=== PATIENT | female | born 1995 | race Caucasian/White ===

== ENCOUNTER 2020-09-18 09:48 | Emergency (ER) | payer MEDICAID, SELFPAY ==
[2020-09-18 09:56] VITALS: BP 119/71; PULSE 108; RESP 18; TEMP 36.6; O2SAT 98; BMI 20.2
--- NOTE | 2020-09-18 09:56 | ECG_ITS ---
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 Measurements Intervals [place] Rate: 92 P: 71 [place]: 114 QRS: 41 QRSD: 77 T: -34 QT: 345 QTc: 428 Interpretive Statements SINUS RHYTHM WITH SHORT OH INTERVAL POSSIBLE LEFT ATRIAL ENLARGEMENT [-0.1mV P WAVE IN V1/V2] NONSPECIFIC T-WAVE ABNORMALITY No previous ECG available for comparison Electronically Signed On 09-18-2020 16:55:22 PARTY HOST by Tu Mcfadden M.D. [id number]
--- NOTE | 2020-09-18 10:10 | W.ED.DIZZY ---
HPI - Dizziness General: Chief Complaint: Dizziness Stated Complaint: dizziness Time Seen by Provider: 09/18/20 09:55 Source: patient Mode of arrival: ambulatory Limitations: no limitations History of Present Illness: HPI Narrative: 25-year-old female patient presents to the emergency room with 2-day history of dizziness. She reports lightheadedness and dizziness that has been chronic due to dehydration x3 years. Recently evaluated by her primary care physician on September 16, 2020, was advised she was dehydrated. Advised to increase fluids, patient states has done so and is not improving. She reports dizziness is worse with standing and position changes. She reports dizziness as feeling lightheaded as if she were to pass out. Recently initiated on Lexapro July 2020. States dizzy spells have increased since Lexapro use and questions if Lexapro could be cause of dizzy spells. Reports runny nose and frontal headache in the recent past, denies BENTLEY upon exam. She reports did not want to take the medication but was advised by her primary care to do so. MD elicited complaint: dizziness and lightheadedness Pertinent past history: other (chronic dehydration from increased soda and coffee intake, denies n/v/d) Onset (ago): day(s) (2-3; chronic x 3 years on and off) Severity: moderate Description: lightheadedness and near-syncope Context: change in medication History of similar symptoms: Yes Exacerbating factors: movement/ambulation Relieving factors: remaining still Associated symptoms: Reports no associated symptoms; Denies chest pain, chills, diaphoresis, headache(s), nausea, palpitations or vomiting Associated neuro symptoms: Reports no associated symptoms; Deny confusion or numbness in extremities Review of Systems General: Reports: 10 or more systems reviewed and unremarkable except in HPI and below Const: Denies: fever(s), chills or diaphoresis Eyes: Denies: blurry vision or eye redness ENMT: Denies: throat pain, dental pain or disequilibrium Card: Denies: chest pain, palpitations, irregular heart rhythm or dyspnea on exertion Resp: Denies: dyspnea, productive cough, non-productive cough or wheezing GI: Denies: abdominal pain, nausea or vomiting : Denies: difficulty voiding or dysuria Musc: Denies: neck pain, back pain, joint warmth, joint stiffness, muscle cramps or muscle weakness Skin/Breast: Denies: rash or pruritus Neuro: Reports: dizziness; Denies: headache(s), numbness in extremities, weakness in extremities, difficulty walking, frequent falls, confusion, behavioral changes, Slurred speech present or involuntary movements Psych: Reports: anxiety; Denies: depression, panic attacks, hopelessness, loss of interest, irritability or difficulty concentrating Eusebio/Lymph: Denies: easy bruising Physical Exam Const: COMMON NORMALS: no acute distress, patient oriented x3, healthy appearing and alert GENERAL APPEARANCE: cooperative, comfortable and well hydrated HENMT: COMMON NORMALS: normocephalic, atraumatic, external ears normal, EAC's normal, TM's normal bilaterally, Normal external nose present and moist oral mucous membranes HEAD & SCALP: normal to inspection, normocephalic and atraumatic FACE & SINUS: normal facial exam, sinuses nontender and face symmetric NOSE: Normal external nose present, No nasal polyps present, No nasal discharge present and Abnormal mucous membranes and turbinates present (cobblestone, swelling bilateral) EXTERNAL EAR: Yes external ears normal EXTERNAL AUDITORY CANAL: EAC's normal TYMPANIC MEMBRANE: TM's normal bilaterally MOUTH: Normal oral and palatal mucosa present, lip normal and tongue normal THROAT: posterior oropharynx normal, tonsils normal and uvula midline Eye: COMMON NORMALS: Equal, round and reactive pupils present and EOMs intact bilaterally GENERAL EYE: appearance normal, both eyes and all related structures PUPIL: Yes Equal, round and reactive pupils present Neck/C-Spine: COMMON NORMALS: full ROM, no lymphadenopathy and supple GENERAL: Yes normal visual inspection and Yes trachea midline CERVICAL SPINE: Yes cervical ROM normal Lymph: LYMPHATIC: no lymphadenopathy noted Chest: COMMONS NORMALS: normal inspection of the chest and normal palpation of entire chest wall Resp: COMMON NORMALS: normal respiratory effort, No retractions, No use of accessory muscles and clear to auscultation bilaterally EFFORT & INSPECTION: Yes able to speak in complete sentences AUSCULTATION: clear to auscultation bilaterally Cardio: COMMON NORMALS: regular rate, regular rhythm, S1 normal heart sound present and S2 normal heart sound present PALPATION: normal PMI RATE: regular rate RHYTHM: regular rhythm HEART SOUNDS: S1 normal heart sound present and S2 normal heart sound present GI: COMMON NORMALS: Soft to palpation and non-tender INSPECTION: Yes normal to inspection PALPATION: Yes Soft to palpation : COMMON NORMALS: Yes no CVA tenderness BLADDER/KIDNEY EXAM: Yes no CVA tenderness Back/Pelvis: COMMON NORMALS: no CVA tenderness and thoracic and lumbar spine normal to inspection Extremity: COMMON NORMALS: normal to inspection and capillary refill normal Neuro: NANCY COMA SCALE: document GCS findings Nancy coma scale eye opening: Spontaneous [place] coma scale verbal response: Orientated [place] coma scale motor response: Obey commands Nancy coma scale total score: 15 COMMON NORMALS: patient oriented x3 and no focal motor deficits SENSORIUM/ORIENTATION: Yes alert SPEECH: speech normal GAIT: Yes Normal gait present MOTOR EXAM: 5/5 motor strength present throughout, Pronator motor function not present and no tremor noted Right pupil size (mm): 4 Left pupil size (mm): 4 Psych: COMMON NORMALS: mental status grossly normal, Normal thought process present, cooperative, normal affect, speech normal, activity/motor behavior normal, denies hallucinations, denies homicidal ideation and denies suicidal ideation ACTIVITY/MOTOR BEHAVIOR: Yes appropriate eye contact SPEECH: Yes normal speech THOUGHT PROCESS: Normal thought process present Skin: COMMON NORMALS: no rashes or lesions noted and turgor normal GENERAL SKIN EXAM: no rashes or lesions noted and turgor normal Course ED course: 25-year-old female patient presents to the emergency department with increased dizziness since initiation of Lexapro. CBC without acute abnormalities, hCG negative, chemistry with slight hypokalemia, 3.4. Orthostatics positive with heart rate, increased to 113 with standing. Blood pressure remained stable. She continues to verbalize concern that Lexapro is the cause of her dizziness, since she is only on 10 mg daily and has experienced similar side effects symptoms with use of sertraline, will have her stop Lexapro, initiate hydroxyzine for her to take as needed for anxiety. She reports does not take Lexapro for depression only for anxiety and does not experience anxiety symptoms daily. She agrees to follow-up with her primary care provider next week for reevaluation. Advised to continue to push fluids such as water, Powerade or Gatorade 0. Verbalized understanding. We will also initiate Flonase for allergy/sinus symptoms. As Lexapro discontinuation mention, she reports was feeling better. She did receive 500 cc of normal saline here in the ED, reports dizziness was improving and is requesting to go home. Vital Signs: Vital signs: Vital Signs Temperature 97.9 F 09/18/20 09:56 Pulse Rate 83 09/18/20 10:31 Respiratory Rate 18 09/18/20 09:56 Blood Pressure 101/66 09/18/20 10:31 Pulse Oximetry 98 09/18/20 09:56 MDM - Dizziness Lab Data: Labs: Lab Results 09/18/20 09/18/20 09/18/20 Range/Units 10:18 10:18 10:18 WBC 4.6 (4.0-10.0) 10^3/ uL RBC 4.63 (4.1-5.3) 10^6/u L Hgb 14.1 (11.5-15.3) g/dL Hct 43.7 (37.0-47.0) % MCV 94.4 (81-99) fL MCH 30.5 (28.0-34.0) pg MCHC 32.3 (30.0-36.0) g/dL RDW 13.2 (12.1-15.1) % Plt Count 208 (130-400) 10^3/c mm MPV 12.4 H (7.4-10.4) fL Neut % (Auto) 65.2 % Lymph % (Auto) 26.7 % [place] % (Auto) 6.3 % Eos % (Auto) 0.9 % Baso % (Auto) 0.7 % Neut # (Auto) 2.98 (1.8-7.7) 10^3/u L Lymph # (Auto) 1.2 (0.8-4.8) 10^3/u L [place] # (Auto) 0.3 (0.2-0.9) 10^3/u L Eos # (Auto) 0.0 (0.0-0.8) 10^3/u L Baso # (Auto) 0.0 (0.0-0.1) 10^3/u L Nucleated RBC % (a uto) 0 % Nucleated RBCs # 0.0 /100WBC Sodium 138 (136-145) mmol/L Potassium 3.4 L (3.5-5.1) mmol/L Chloride 103 (98-107) mmol/L Carbon Dioxide 24 (22-29) mmol/L Anion Gap 14.4 (5-19) BUN 7 (6-20) mg/dL Creatinine 0.6 (0.5-0.9) mg/dL GFR Calculation 122.8 (90-130) mL/min Glucose 107 (65-115) mg/dL Calculated Osmolal ity 284 L (285-295) mOsm/k g Calcium 9.4 (8.5-10.5) mg/dL Total Bilirubin 0.7 (0.15-1.2) mg/dL AST 17 (0-32) U/L ALT 11 (0-33) U/L Alkaline Phosphata se 64 (35-105) IU/L Total Protein 8.3 (6.6-8.7) g/dL Albumin 5.1 (3.5-5.2) g/dL Globulin 3.2 (1.3-4.6) g/dL HCG, Qual Negative (Negative) Discharge Plan Discharge Patient Disposition: Home Clinical Impression: Dizziness Adverse reaction to drug Qualifiers: Encounter type: initial encounter Qualified Code(s): T50.905A - Adverse effect of unspecified drugs, medicaments and biological substances, initial encounter Allergic rhinitis Qualifiers: Allergic rhinitis trigger: unspecified Allergic rhinitis seasonality: unspecified Qualified Code(s): J30.9 - Allergic rhinitis, unspecified Condition: Stable Prescriptions: New hydroxyzine HCl 25 mg tablet 25 mg PO Q6H PRN (Reason: anxiety) Qty: 14 RF: 0 Allergy Relief (fluticasone) 50 mcg/actuation spray,suspension 1 spray intranasal BID PRN (Reason: allergy symptoms) Qty: 15.8 RF: 0 Discharge Orders: Discharge ED (Routine); Ordered 09/18/20 Ordered By: Janae Hernández Discharge Diet: Usual diet Discharge Activity: Resume usual activity Patient Instructions: Allergic Rhinitis (ED), Dizziness (ED), Anxiety (ED) Activity Restrictions/Additional Instructions: Stop Lexapro, follow-up with your primary care physician without fail next week Return to the emergency department if you develop worsening symptoms such as the worst headache of your life, syncope, passing out or uncontrolled anxiety symptoms. Push fluids, rest today and tomorrow. 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
[2020-09-18 10:31] VITALS: BP 101/66; BP 101/70; BP 106/74; PULSE 109; PULSE 113; PULSE 83
[2020-09-18 10:48] LABS: Basophils % 0.7 %; Eosinophils % 0.9 %; Hematocrit 43.7 % (37.0-47.0); Hemoglobin 14.1 g/dL (11.5-15.3); Lymphocytes # 1.2 10^3/uL (0.8-4.8); Lymphocytes % 26.7 %; Mean Corpuscular HGB Conc 32.3 g/dL (30.0-36.0); Mean Corpuscular Hemoglobin 30.5 pg (28.0-34.0); Mean Corpuscular Volume 94.4 fL (81-99); Mean Platelet Volume 12.4 fL (7.4-10.4); Monocytes # 0.3 10^3/uL (0.2-0.9); Monocytes % 6.3 %; Neutrophils # 2.98 10^3/uL (1.8-7.7); Neutrophils % 65.2 %; Nucleated Red Blood Cells % 0 %; Platelet Count 208 10^3/cmm (130-400); Red Blood Count 4.63 10^6/uL (4.1-5.3); Red Cell Distribution Width 13.2 % (12.1-15.1); White Blood Count 4.6 10^3/uL (4.0-10.0)
[2020-09-18 10:56] LABS: HCG, Serum Qual Negative (Negative)
[2020-09-18 11:05] LABS: Alanine Aminotransferase 11 U/L (0-33); Albumin Level 5.1 g/dL (3.5-5.2); Alkaline Phosphatase 64 IU/L (35-105); Anion Gap 14.4 (5-19); Aspartate Amino Transferase 17 U/L (0-32); Blood Urea Nitrogen 7 mg/dL (6-20); Calcium 9.4 mg/dL (8.5-10.5); Carbon Dioxide 24 mmol/L (22-29); Chloride 103 mmol/L (98-107); Globulin 3.2 g/dL (1.3-4.6); Glomerular Filtration Rate 122.8 mL/min (90-130); Glucose 107 mg/dL (65-115); Osmolality Calculated 284 mOsm/kg (285-295); Potassium 3.4 mmol/L (3.5-5.1); Sodium 138 mmol/L (136-145); Total Bilirubin 0.7 mg/dL (0.15-1.2); Total Protein 8.3 g/dL (6.6-8.7)
[2020-09-18] MEDS: sodium chloride 0.9% 500 ML 999 ML IV (11:08)
[2020-09-18 12:12] VITALS: BP 103/56; PULSE 81; RESP 20; O2SAT 98
== END 2020-09-18 12:13 | disposition home or self-care (01) ==
PROVIDERS: Emergency Provider Nurse Practitioner Family
DX: R42 Dizziness and giddiness (principal); T50.905A Adverse effect of unspecified drugs, medicaments and biological substances, initial encounter; J30.9 Allergic rhinitis, unspecified
CPT/HCPCS: 12345; 80053; 84703; 85025; 93005; 99282; 99283; J7040

== ENCOUNTER → 2020-12-27 14:22 | Outpatient (BNVA) | payer MEDICAID, SELFPAY | PROVIDERS: Visit Provider Psychiatry & Neurology Psychiatry | DX: F41.1 Generalized anxiety disorder (principal); F43.9 Reaction to severe stress, unspecified | CPT/HCPCS: 99204 ==

== ENCOUNTER → 2021-02-07 09:31 | Outpatient (BNVA) | payer MEDICAID, SELFPAY | PROVIDERS: Visit Provider Psychiatry & Neurology Psychiatry | DX: F43.9 Reaction to severe stress, unspecified (principal); F41.1 Generalized anxiety disorder | CPT/HCPCS: 99214 ==

== ENCOUNTER 2021-04-02 14:57 | Emergency (ER) | payer MEDICAID, SELFPAY ==
[2021-04-02] VITALS (7 sets, daily range): BP systolic 95–122; BP diastolic 65–76; PULSE 74–97; RESP 15–18; TEMP 36.7; O2SAT 99–100; BMI 21.4
[2021-04-02 18:08] LABS: Add Urine Microscopic? YES; Bilirubin Urine Neg (Negative); Blood Urine 3+ (Negative); Glucose Urine UA Norm (Normal); Ketones Urine Negative (Negative); Leukocyte Esterase Urine Negative (Negative); Nitrate Urine Negative (Negative); Protein Urine Neg (Negative); RBC Urine 80-100 /hpf (0-2); Specific Gravity, Urine 1.015 (1.005-1.030); Urine Appearance SL Hazy (CLEAR); Urine Color Yellow (Yellow); Urobilinogen Urine Norm (Negative); pH Urine 6.5 (5-7)
[2021-04-02 18:09] LABS: Add Urine Culture? Yes; Bacteria Urine TRACE /hpf
--- NOTE | 2021-04-02 18:28 | W.ED.DIZZY ---
HPI - Dizziness General: Chief Complaint: Dizziness Stated Complaint: FEELS DEHYDRATED Time Seen by Provider: 04/02/21 15:26 Source: patient Mode of arrival: ambulatory Limitations: no limitations History of Present Illness: HPI Narrative: This 25 year old female presents to the ED with complaints of dizziness. She has had this for a few days, and went to see her PCP for the same. She was told that she was dehydrated. He told her to increase water intake however she only drank half a bottle of a 16 ounce water bottle yesterday. She denies any sensation of the room spinning, denies nausea or vomiting. She denies any chest pain or shortness of breath. No other symptoms. She is currently on her menstrual cycle. MD elicited complaint: dizziness Onset (ago): day(s) (2) Timing: gradual onset Severity: mild Description: lightheadedness Exacerbating factors: nothing Relieving factors: nothing Associated symptoms: Denies abnormal vaginal bleeding, change in hearing, chest pain, chills, cough, diaphoresis, ear discharge, ear pressure, fevers/chills, headache(s), malaise, nausea, nasal congestion, palpitations, rash, short of breath, syncope, tinnitus, vomiting or weakness Associated neuro symptoms: Deny confusion, difficulty speaking, dysphagia, diplopia, extremity weakness, facial numbness, facial weakness, gait changes, numbness in extremities or visual changes Review of Systems General: Reports: 10 or more systems reviewed and unremarkable except in HPI and below Const: Denies: chills, malaise or diaphoresis ENMT: Denies: ear discharge, change in hearing, tinnitus or nasal congestion Card: Denies: chest pain, palpitations or syncope GI: Denies: nausea, vomiting or dysphagia Neuro: Denies: headache(s), numbness in extremities or confusion PFS ED PFSH: Medical History (Reviewed 04/02/21 @ 19:57 by Chaparrita Gonzalez MD, [facility] – [place]) STEVE (generalized anxiety disorder) Sertraline caused dizziness. Surgical History (Reviewed 04/02/21 @ 19:57 by Chaparrita Gonzalez MD, [facility] – [place]) H/O section Social History (Reviewed 04/02/21 @ 19:57 by Chaparrita Gonzalez MD, [facility] – [place]) Smoking and tobacco status: never smoked Second hand smoke exposure: Yes Alcohol intake: current Alcohol intake frequency: few times a month Female Reproductive History: Date of last menstrual period: 04/02/21 Spontaneous abortions: No Physical Exam Const: COMMON NORMALS: no acute distress, average body habitus, patient oriented x3, no limitations, healthy appearing, alert and well nourished HENMT: COMMON NORMALS: normocephalic, atraumatic and moist oral mucous membranes HEAD & SCALP: normocephalic and atraumatic Neck/C-Spine: COMMON NORMALS: no meningeal signs and no JVD Resp: COMMON NORMALS: normal respiratory effort, No retractions, No use of accessory muscles, clear to auscultation bilaterally and percussion normal AUSCULTATION: clear to auscultation bilaterally PERCUSSION: percussion normal Cardio: COMMON NORMALS: no JVD, regular rate, regular rhythm, S1 normal heart sound present, S2 normal heart sound present, No gallops present (Cardio), No clicks present (Cardio), No murmurs present (Cardio), No rub (Cardio) and Peripheral pulses 2+ throughout RATE: regular rate RHYTHM: regular rhythm HEART SOUNDS: S1 normal heart sound present and S2 normal heart sound present PERIPHERAL PULSES: Peripheral pulses 2+ throughout GI: COMMON NORMALS: Normal to inspection, nondistended, normoactive bowel sounds present, Soft to palpation, non-tender, No hepatosplenomegaly present, no masses and no bruits PALPATION: Yes Soft to palpation and Yes No hepatosplenomegaly present Extremity: COMMON NORMALS: normal to inspection, full ROM, capillary refill normal, no calf tenderness and no pedal edema Neuro: COMMON NORMALS: patient oriented x3 SENSORIUM/ORIENTATION: Yes alert MENINGEAL SIGNS: Yes no meningeal signs Course Reevaluation(s): Reevaluation #1: Discussed the lab findings with her. Also discussed her orthostatic findings. She is not orthostatic. Labs are unremarkable. We will discharge her home with no new orders and she is advised to drink plenty of water. She voiced understanding and is in agreement with the plan. Time: 19:25 Vital Signs: Vital signs: Vital Signs Temperature 98.1 F 04/02/21 15:05 Pulse Rate 84 04/02/21 19:48 Respiratory Rate 16 04/02/21 19:48 Blood Pressure 118/76 04/02/21 19:48 Pulse Oximetry 100 04/02/21 19:48 MDM - Dizziness MDM Narrative: Medical decision making narrative: 25-year-old female patient who presents to the emergency department with nonspecific symptoms of dizziness. Evaluation in the emergency department is unremarkable and she is discharged home with no new orders. Medical Records: Attestation: I reviewed the patient's medical records. Lab Data: Attestation: I reviewed the patient's lab results. Labs: Lab Results 04/02/21 04/02/21 04/02/21 Range/Units 17:53 18:33 18:33 WBC 6.6 (4.0-10.0) 10^3/ uL RBC 4.08 L (4.1-5.3) 10^6/u L Hgb 12.1 (11.5-15.3) g/dL Hct 38.4 (37.0-47.0) % MCV 94.1 (81-99) fL MCH 29.7 (28.0-34.0) pg MCHC 31.5 (30.0-36.0) g/dL RDW 13.9 (12.1-15.1) % Plt Count 240 (130-400) 10^3/c mm MPV 11.0 H (7.4-10.4) fL Neut % (Auto) 68.9 % Lymph % (Auto) 22.0 % [place] % (Auto) 6.7 % Eos % (Auto) 1.7 % Baso % (Auto) 0.5 % Neut # (Auto) 4.55 (1.8-7.7) 10^3/u L Lymph # (Auto) 1.5 (0.8-4.8) 10^3/u L [place] # (Auto) 0.4 (0.2-0.9) 10^3/u L Eos # (Auto) 0.1 (0.0-0.8) 10^3/u L Baso # (Auto) 0.0 (0.0-0.1) 10^3/u L Nucleated RBC % (a uto) 0 % Nucleated RBCs # 0.0 /100WBC Sodium 141 (136-145) mmol/L Potassium 3.8 (3.5-5.1) mmol/L Chloride 107 (98-107) mmol/L Carbon Dioxide 27 (22-29) mmol/L Anion Gap 10.8 (5-19) BUN 7 (6-20) mg/dL Creatinine 0.5 (0.5-0.9) mg/dL GFR Calculation 151.6 H (90-130) mL/min Glucose 84 (65-115) mg/dL Calculated Osmolal ity 289 (285-295) mOsm/k g Calcium 9.1 (8.5-10.5) mg/dL Total Bilirubin 0.3 (0.15-1.2) mg/dL AST 15 (0-32) U/L ALT 10 (0-33) U/L Alkaline Phosphata se 72 (35-105) IU/L C-Reactive Protein 2.1 (0.0-4.9) mg/L Total Protein 7.2 (6.6-8.7) g/dL Albumin 4.4 (3.5-5.2) g/dL Globulin 2.8 (1.3-4.6) g/dL Urine Color Yellow (Yellow) Urine Appearance Sl hazy (CLEAR) Urine pH 6.5 (5-7) Ur Specific Gravit y 1.015 (1.005-1.030) Urine Protein Neg (Negative) Urine Glucose (UA) Norm (Normal) Urine Ketones Negative (Negative) Urine Blood 3+ H (Negative) Urine Nitrate Negative (Negative) Urine Bilirubin Neg (Negative) Urine Urobilinogen Norm (Negative) mg/dL Ur Leukocyte Danitza ase Negative (Negative) Urine RBC 80-100 H (0-2) /hpf Urine WBC None (0-5) /hpf Ur Squamous Epith Cells 5-10 H (0-5) /hpf Amorphous Sediment Not Reportable Urine Bacteria Trace (NONE) /hpf Discharge Plan Discharge Patient Disposition: Home Clinical Impression: Dizziness Condition: Stable Prescriptions: Continued Tylenol Extra Strength 500 mg Tablet 1,000 mg PO PRN RF: 0 Lexapro 20 mg tablet 20 mg PO BEDTIME RF: 0 Discharge Orders: Discharge ED (Routine); Ordered 04/02/21 Ordered By: Chaparrita Gonzalez Discharge Diet: Usual diet Discharge Activity: Increase activity as tolerated Patient Instructions: Dizziness (ED) Activity Restrictions/Additional Instructions: Return for any new or worsening symptoms. Follow-up with your primary care provider within 3 days. It is important that you drink plenty of fluids to keep well-hydrated. Coding Level of Care Code ED Mine Utility Operator for Cuca Shin
[2021-04-02 18:41] LABS: Basophils % 0.5 %; Eosinophils # 0.1 10^3/uL (0.0-0.8); Eosinophils % 1.7 %; Hematocrit 38.4 % (37.0-47.0); Hemoglobin 12.1 g/dL (11.5-15.3); Lymphocytes # 1.5 10^3/uL (0.8-4.8); Mean Corpuscular HGB Conc 31.5 g/dL (30.0-36.0); Mean Corpuscular Hemoglobin 29.7 pg (28.0-34.0); Mean Corpuscular Volume 94.1 fL (81-99); Monocytes # 0.4 10^3/uL (0.2-0.9); Monocytes % 6.7 %; Neutrophils # 4.55 10^3/uL (1.8-7.7); Neutrophils % 68.9 %; Nucleated Red Blood Cells % 0 %; Platelet Count 240 10^3/cmm (130-400); Red Blood Count 4.08 10^6/uL (4.1-5.3); Red Cell Distribution Width 13.9 % (12.1-15.1); White Blood Count 6.6 10^3/uL (4.0-10.0)
[2021-04-02 19:01] LABS: Alanine Aminotransferase 10 U/L (0-33); Albumin Level 4.4 g/dL (3.5-5.2); Alkaline Phosphatase 72 IU/L (35-105); Anion Gap 10.8 (5-19); Aspartate Amino Transferase 15 U/L (0-32); Blood Urea Nitrogen 7 mg/dL (6-20); C Reactive Protein 2.1 mg/L (0.0-4.9); Calcium 9.1 mg/dL (8.5-10.5); Carbon Dioxide 27 mmol/L (22-29); Chloride 107 mmol/L (98-107); Globulin 2.8 g/dL (1.3-4.6); Glomerular Filtration Rate 151.6 mL/min (90-130); Glucose 84 mg/dL (65-115); Osmolality Calculated 289 mOsm/kg (285-295); Potassium 3.8 mmol/L (3.5-5.1); Sodium 141 mmol/L (136-145); Total Bilirubin 0.3 mg/dL (0.15-1.2); Total Protein 7.2 g/dL (6.6-8.7)
== END 2021-04-02 19:50 | disposition home or self-care (01) ==
PROVIDERS: Emergency Provider Family Medicine
DX: R42 Dizziness and giddiness (principal); Z77.22 Contact with and (suspected) exposure to environmental tobacco smoke (acute) (chronic)
CPT/HCPCS: 36415; 80053; 81001; 85025; 86140; 87086; 99283

== ENCOUNTER → 2021-05-26 08:49 | Outpatient (BNVA) | payer OTHER, MEDICAID, SELFPAY | PROVIDERS: Visit Provider Psychiatry & Neurology Psychiatry | DX: F43.9 Reaction to severe stress, unspecified (principal); F41.1 Generalized anxiety disorder | CPT/HCPCS: 99213 ==

== ENCOUNTER → 2021-08-09 07:56 | Outpatient (BNVA) | payer OTHER, MEDICAID, SELFPAY | PROVIDERS: Visit Provider Psychiatry & Neurology Psychiatry | DX: F43.9 Reaction to severe stress, unspecified (principal); F41.1 Generalized anxiety disorder | CPT/HCPCS: 99213 ==

== ENCOUNTER → 2021-11-14 12:33 | Outpatient (BNVA) | payer MEDICAID, SELFPAY | PROVIDERS: Visit Provider Nurse Practitioner Family | DX: J11.1 Influenza due to unidentified influenza virus with other respiratory manifestations (principal); R68.89 Other general symptoms and signs | CPT/HCPCS: 87400 ==

== ENCOUNTER → 2021-11-15 07:35 | Outpatient (BNVA) | payer MEDICAID, SELFPAY | PROVIDERS: Visit Provider Psychiatry & Neurology Psychiatry | DX: F43.9 Reaction to severe stress, unspecified (principal); F41.1 Generalized anxiety disorder | CPT/HCPCS: 99214 ==

== ENCOUNTER → 2022-03-15 15:36 | Outpatient (BNVA) | payer OTHER, MEDICAID, SELFPAY | PROVIDERS: Visit Provider Psychiatry & Neurology Psychiatry | DX: F43.9 Reaction to severe stress, unspecified (principal); F41.1 Generalized anxiety disorder; R11.0 Nausea | CPT/HCPCS: 99214 ==

== ENCOUNTER → 2022-05-01 17:07 | Outpatient (BNVA) | payer OTHER, SELFPAY | PROVIDERS: Visit Provider Emergency Medicine | DX: Z20.822 Contact with and (suspected) exposure to COVID-19 (principal); B34.9 Viral infection, unspecified | CPT/HCPCS: 87426 ==

== ENCOUNTER 2022-11-30 17:25 | Outpatient (CLI) | payer MEDICAID, SELFPAY ==
[2022-11-30 17:25] VITALS: BMI 31.4
[2022-11-30 17:41] VITALS: BP 135/78; PULSE 103; RESP 18
[2022-11-30 18:18] VITALS: BP 135/78; PULSE 103; RESP 18
== END 2022-11-30 18:10 | disposition home or self-care (01) ==
LOC: OPOB 17:29 → OBGYN 17:41
PROVIDERS: Absent Provider Family Medicine; Visit Provider Family Medicine
DX: O26.899 Other specified pregnancy related conditions, unspecified trimester (principal); Z3A.00 Weeks of gestation of pregnancy not specified; R10.9 Unspecified abdominal pain
CPT/HCPCS: 81000; 87070; 87205; 99211

== ENCOUNTER 2023-01-29 11:23 | Outpatient (CLI) | payer MEDICAID, SELFPAY ==
[2023-01-29 11:41] VITALS: BP 106/57; PULSE 87
[2023-01-29 11:45] VITALS: BMI 31.9
[2023-01-29 11:58] VITALS: BP 107/68; PULSE 90; TEMP 35.9
[2023-01-29 12:15] VITALS: BP 107/68; PULSE 90; TEMP 35.9
== END 2023-01-29 12:16 | disposition home or self-care (01) ==
LOC: OPOB 11:29 → OBGYN 11:30
PROVIDERS: Visit Provider Family Medicine
DX: O36.8190 Decreased fetal movements, unspecified trimester, not applicable or unspecified (principal); Z3A.00 Weeks of gestation of pregnancy not specified
CPT/HCPCS: 59025; 99211

== ENCOUNTER 2023-03-18 09:45 | Outpatient (CLI) | payer MEDICAID, SELFPAY ==
[2023-03-18] VITALS (7 sets, daily range): BP systolic 142–159; BP diastolic 77–98; PULSE 86–95; RESP 16; TEMP 36.7; BMI 32.3
[2023-03-18 10:54] LABS: Bilirubin Urine Neg (Negative); Blood Urine Neg (Negative); Glucose Urine UA Norm (Normal); Ketones Urine Negative (Negative); Nitrate Urine Negative (Negative); Protein Urine Neg (Negative); Specific Gravity, Urine 1.005 (1.005-1.030); Urine Appearance Hazy (CLEAR); Urine Color Yellow (Yellow); pH Urine 7 (5-7)
[2023-03-18 10:55] LABS: Add Urine Culture? No; Bacteria Urine 3+ /hpf; Leukocyte Esterase Urine 2+ (Negative); Squamous Epithelial Cell Urine 15-25 /hpf (0-5); Urobilinogen Urine Norm (Negative)
[2023-03-18] MEDS: nitrofurantoin SR (BID) 100 mg Capsule PO (11:11)
== END 2023-03-18 11:15 | disposition home or self-care (01) ==
LOC: OPOB 09:52 → OBGYN 09:53
PROVIDERS: Visit Provider Family Medicine
DX: O23.43 Unspecified infection of urinary tract in pregnancy, third trimester (principal); N39.0 Urinary tract infection, site not specified; Z3A.37 37 weeks gestation of pregnancy
CPT/HCPCS: 59025; 81001; 99211

== ENCOUNTER 2023-03-31 11:13 | Outpatient (CLI) | payer MEDICAID, SELFPAY ==
[2023-03-31 11:30] VITALS: BMI 32.9
[2023-03-31 11:32] VITALS: BP 120/58; PULSE 98
[2023-03-31 11:37] VITALS: RESP 17; TEMP 36.6
[2023-03-31 12:02] VITALS: BP 106/61; PULSE 100
[2023-03-31 12:09] LABS: Bilirubin Urine Neg (Negative); Blood Urine Neg (Negative); Glucose Urine UA Norm (Normal); Ketones Urine Negative (Negative); Nitrate Urine Negative (Negative); Protein Urine Neg (Negative); Urine Appearance SL Hazy (CLEAR); Urine Color Yellow (Yellow); pH Urine 6.5 (5-7)
[2023-03-31 12:10] LABS: Leukocyte Esterase Urine Trace (Negative); Urobilinogen Urine Norm (Negative)
[2023-03-31 12:12] LABS: Add Urine Culture? No; Bacteria Urine 1+ /hpf; Mucus Urine 1+ /hpf
[2023-03-31 12:32] VITALS: BP 117/69; PULSE 100
[2023-03-31 12:35] VITALS: BP 117/69; PULSE 100
== END 2023-03-31 12:40 | disposition home or self-care (01) ==
LOC: OPOB 11:22 → OBGYN 11:23
PROVIDERS: Visit Provider Family Medicine
DX: O26.899 Other specified pregnancy related conditions, unspecified trimester (principal); R39.198 Other difficulties with micturition; Z3A.00 Weeks of gestation of pregnancy not specified
CPT/HCPCS: 59025; 81001; 87086; 99211

== ENCOUNTER 2023-04-02 05:09 | Inpatient (IN) | payer MEDICAID, SELFPAY ==
--- NOTE | 2023-03-19 10:32 | ANES.PREANE2 ---
Pre-Anesthetic Assessment Height/Weight: Height 1.65 m Operation Date: 04/02/23 07:20 Proposed Procedures p Section Repeat(Not Applicable) - David Jaramillo MD Familial anesthetic complications: None Social No alcohol and No tobacco Exam alert, oriented x 3, clear to auscultation bilaterally and regular rate & rhythm Airway Mallampati: Class II Dentition: full Pulmonary None reported CV/HEM None reported None reported Hepatic None reported GI None reported Metabolic None reported Musc/skel None reported Neuropsych None reported Anesthetic Plan ASA status: 2 Anesthesia: Regional (specify below) (spinal) Risk of > 500 ml blood loss (7ml/kg in children): Yes, adequate IV access and fluids planned Medications/Allergies Home Medications Medication Instructions Recorded Confirmed Last Taken Type citalopram 20 mg tablet 20 mg PO DAILY 08/30/22 01/29/23 01/29/23 History Allergies Allergy/AdvReac Type Severity Reaction Status Date / Time amoxicillin Allergy Severe swollen Verified 11/30/22 10:10 tongue and throat [facility] Anesthesia Medical History (Updated 03/16/23 @ 09:11 by Cori Frances) STEVE (generalized anxiety disorder) Sertraline caused dizziness. Surgical History H/O section Social History Smoking and tobacco status: never smoked Second hand smoke exposure: Yes Alcohol intake: never Substance/Drug Use: never Female Reproductive History Spontaneous abortions: No Data Anesthesia Cardiac Studies: No Data to Display
[2023-04-02] VITALS (118 sets, daily range): BP systolic 91–114; BP diastolic 33–73; PULSE 75–109; RESP 16–18; TEMP 36.1–36.4; O2SAT 91–100; BMI 32.5
[2023-04-02 05:43] LABS: Basophils % 0.3 %; Eosinophils # 0.1 10^3/uL (0.0-0.8); Eosinophils % 0.7 %; Hematocrit 36.2 % (37.0-47.0); Hemoglobin 11.9 g/dL (11.5-15.3); Lymphocytes # 1.5 10^3/uL (0.8-4.8); Lymphocytes % 19.8 %; Mean Corpuscular HGB Conc 32.9 g/dL (30.0-36.0); Mean Corpuscular Hemoglobin 30.4 pg (28.0-34.0); Mean Corpuscular Volume 92.6 fl (81-99); Monocytes # 0.6 10^3/uL (0.2-0.9); Monocytes % 7.3 %; Neutrophils # 5.35 10^3/uL (1.8-7.7); Neutrophils % 71.4 %; Nucleated Red Blood Cells % 0 %; Platelet Count 163 10^3/cmm (130-400); Red Blood Count 3.91 10^6/uL (4.1-5.3); Red Cell Distribution Width 13.4 % (12.1-15.1); White Blood Count 7.5 10^3/uL (4.0-10.0)
[2023-04-02] MEDS: lactated ringers 1,000 ML 999 ML IV (05:54)
--- NOTE | 2023-04-02 06:33 | P.HP_ITS ---
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 care has been fairly unremarkable. labs were unremarkable. Patient has not had any significant complications throughout her . Patient is GBS negative. Patient has no acute concerns today. Present Details : 3 Para: 2 care: good care Ultrasounds: normal 1st trimester US and normal mid trimester US Obstetrical complications: none Medical complications OB: none Labs RPR: Negative GBS: Negative HBsAG: Negative Specific History Indications for Section: Repeat Review of Systems Const: Denies: fever(s), chills, body aches, change in appetite, change in we ight, fatigue or malaise Eyes: Denies: eye discomfort, eye discharge or eye redness ENMT: Reports: ear or mastoid pain (bilateral for a week); Denies: throat pain, odynophagia, ear discharge, nasal discharge, nasal congestion, post nasal drip or sinus pain Card: Denies: chest pain, palpitations, irregular heart rhythm, edema or swelling of feet/ankles Resp: Denies: dyspnea, productive cough, non-productive cough, wheezing, pain on inspiration or chest congestion GI: Denies: abdominal pain, nausea, vomiting, diarrhea, constipation or change in bowel habits Skin/Breast: Denies: rash, pruritus, erythema or sores Neuro: Denies: headache(s), numbness in extremities, weakness in extremities, sensory changes, lack of coordination or dizziness Psych: Denies: anxiety or depression Medications/Allergies Home Medications Medication Instructions Recorded Confirmed Last Taken Type citalopram 20 mg tablet 20 mg PO DAILY 08/30/22 04/02/23 04/01/23 History prenat.vits,yeimy,mvn-[id number] 1 tab PO DAILY 03/31/23 04/02/23 04/01/23 History Allergies Allergy/AdvReac Type Severity Reaction Status Date / Time amoxicillin Allergy Severe swollen Verified 04/02/23 06:34 tongue and throat 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 Surgical History (Updated 04/02/23 @ 06:42 by David Jaramillo MD) H/O section Social History Smoking and tobacco status: never smoked Second hand smoke exposure: Yes Alcohol intake: never Substance/Drug Use: never Personal Safety: Do you feel safe at home: Yes Victim of physical abuse: No Victim of emotional abuse: No Victim of sexual abuse: No Would you like help information on resources?: No History History History 3 Term 2 Miscarriages/Ectopic Living Children 2 Vitals/I&O/Wt Last Vital Signs Temp 97.5 F L 04/02/23 05:25 Pulse 109 H 04/02/23 05:25 BP 112/73 04/02/23 05:25 O2 Del Method Room Air 04/02/23 06:25 Weight last 48 hrs Weight 88.904 kg Weight 88.904 kg Physical Exam Const: COMMON NORMALS: no acute distress and alert HENMT: COMMON NORMALS: normocephalic and moist oral mucous membranes Eye: COMMON NORMALS: EOMs intact bilaterally and no scleral icterus Resp: COMMON NORMALS: normal respiratory effort and No retractions Cardio: COMMON NORMALS: no JVD, regular rate and regular rhythm GI: OTHER: Gravid Extremity: COMMON NORMALS: no clubbing, cyanosis or edema Neuro: COMMON NORMALS: moves all extremities, no focal motor deficits and no sensory deficits noted Psych: COMMON NORMALS: mental status grossly normal, cooperative and normal affect Skin: COMMON NORMALS: no rashes or lesions noted Data 04/02/23 05:35 A&P Assessment and plan (1) History of delivery, currently : Discussed risks and benefits of repeat lower transverse . Patient gives consent to proceed. (2) Term , repeat: Attestations Medical Necessity Statement*: Admit for repeat low-transverse , anticipate greater than 2 midnight stay. Coding Level of Care Code Acute Code for Chg Fwd Diagnoses History of delivery, currently O34.219 Term , repeat Z34.90
[2023-04-02] MEDS: metoclopramide 5 mg/mL SDV 2 mL 10 MG IVP (07:09)
[2023-04-02] MEDS: famotidine 20 mg/2 mL INJ IVP (07:09)
[2023-04-02] MEDS: citric acid-sodium citrate 30 mL UDC PO (07:09)
--- NOTE | 2023-04-02 08:51 | P.OP_ITS ---
Operative Report Date of procedure: April 02, 2023 Pre-op diagnosis: Term , history of previous Post-op diagnosis: same Post-op diagnosis: Viable infant female Procedure done: Repeat lower transverse Surgeon: Dr. Martín Jaramillo Bead Machine Operator: Dr. Cande Steward Anesthesia: Epidural Estimated blood loss (mL): 700 Complications: None Brief History: This is a 27 presented at 39 weeks 2 days for repeat lower transverse due to history of previous Procedure: Patient was taken to the operating room where epidural anesthesia was found to be adequate. She was prepped and draped in the normal sterile fashion in a dorsal supine position with a leftward tilt. Skin incision was made with scalpel and carried out to the underlying layer of fascia which was incised in the midline. Fascial incision was then extended laterally with Beard scissors bilaterally. The superior aspect of the fascial incision was grasped with Temo clamps elevated and dissected off the rectus muscles with Beard's. The inferior aspect of the fascial incision was grasped with Judith's and in likewise manner was elevated and dissected off with Beard's. Peritoneum was then entered digitally and extended with good visualization of the bladder. Bladder blade was then inserted. Uterine incision was then created in a transverse fashion in the lower uterine segment with scalpel and extended digitally. The sac was ruptured with an incision and light meconium was noted. 's head was delivered atraumatically nose and mouth suctioned with bulb, cord clamped and cut and handed off to waiting nursing staff. The placenta was then expressed and uterus exteriorized from the abdomen. And cleared of all clots and debris. Uterine incision was then repaired in a running locked fashion with 0 Vicryl. A second suture of the same was then used to imbricate the incision. Excellent hemostasis was noted. Uterus was then returned to the abdomen, gutters were cleared of all clots and debris. Peritoneum was then closed in a running fashion with 3-0 Vicryl. Fascia was then closed with 0 Vicryl in a running fashion. Subcutaneous tissue was closed with 3-0 Vicryl and skin was closed with 4-0 Monocryl on a Terry needle. The incision was reinforced with Steri- Strips and pressure bandage was placed over the wound. Sponge, laps, and needle count was correct x2. 2 g Ancef was given prior to the procedure. Patient was taken recovery in stable condition.
--- NOTE | 2023-04-02 10:28 | PC.NURSE ---
0900 pt in OR in recovery
[2023-04-02] MEDS: dextrose 5%-lactated ringers 1,000 ML 125 ML IV ×2 (14:54→23:52)
[2023-04-02] MEDS: ketorolac 30 mg/mL INJ IVP ×2 (14:54→20:34)
--- NOTE | 2023-04-02 16:12 | PC.NURSE ---
1556 Dr. Tse notified at this time about pt report of constant dizziness since her this morning. Her hemoglobin prior to surgery was 11.9 and there was 700 EBL. The pt was given Ephedrine post spinal. She was given 25 mg Ephedrine IM and 25 mg IV, this was administered by Chaparrita Wild CRNA. Pt VS and bleeding have remained stable, pt BP is in the lower 100 systolic and 50-70s diastolic, however pt BP prior to surgery was 112/73. Pt reports the dizziness is worse when she sits up, it is better with semi fowlers, but it does not completely go away. Reported that pt tried trendelenburg position as well with no improvements. Pt has only received Toradol since surgery. Received orders to check CBC, BMP, Magnesium level and Calcium level.
[2023-04-02 17:50] LABS: Basophils % 0.3 %; Eosinophils % 0.2 %; Hematocrit 33.5 % (37.0-47.0); Hemoglobin 10.9 g/dL (11.5-15.3); Lymphocytes # 1.2 10^3/uL (0.8-4.8); Lymphocytes % 10.9 %; Mean Corpuscular HGB Conc 32.5 g/dL (30.0-36.0); Mean Corpuscular Hemoglobin 30.9 pg (28.0-34.0); Mean Corpuscular Volume 94.9 fl (81-99); Mean Platelet Volume 10.4 fL (7.4-10.4); Monocytes # 0.8 10^3/uL (0.2-0.9); Neutrophils # 8.98 10^3/uL (1.8-7.7); Neutrophils % 81.2 %; Nucleated Red Blood Cells % 0 %; Platelet Count 164 10^3/cmm (130-400); Red Blood Count 3.53 10^6/uL (4.1-5.3); Red Cell Distribution Width 13.4 % (12.1-15.1)
[2023-04-02 18:05] LABS: Anion Gap 12.5 (5-19); Blood Urea Nitrogen 3 mg/dL (6-20); Calcium 7.8 mg/dL (8.5-10.5); Carbon Dioxide 21 mmol/L (22-29); Chloride 100 mmol/L (98-107); Glomerular Filtration Rate 268.9 mL/min (90-130); Glucose 107 mg/dL (65-115); Magnesium 1.6 mg/dL (1.7-2.3); Osmolality Calculated 267 mOsm/kg (285-295); Potassium 3.5 mmol/L (3.5-5.1); Sodium 130 mmol/L (136-145)
[2023-04-02] MEDS: docusate sodium 100 mg Capsule PO (19:00)
[2023-04-02] MEDS: ferrous sulfate EC 325 mg Tablet PO (19:01)
[2023-04-02] MEDS: lanolin oint 7 gm 1 APPLIC TOPICAL (19:02)
[2023-04-02] MEDS: simethicone 80 mg Chew PO (20:35)
[2023-04-03] VITALS (13 sets, daily range): BP systolic 86–118; BP diastolic 51–60; PULSE 70–93; RESP 18; TEMP 36.2–36.8
[2023-04-03] MEDS: HYDROcodone-acetaminophen 5-325 mg Tablet PO ×6 (00:41→23:24)
[2023-04-03] MEDS: simethicone 80 mg Chew PO ×2 (05:39→21:13)
[2023-04-03] MEDS: ketorolac 30 mg/mL INJ IVP (05:39)
[2023-04-03] MEDS: ferrous sulfate EC 325 mg Tablet PO (07:25)
[2023-04-03] MEDS: prenatal vitamin Capsule 1 CAP PO (07:25)
--- NOTE | 2023-04-03 07:27 | ANE.PACU2 ---
Inpatient post-anesthesia follow up: Airway intact: Yes Vital signs: Temperature 97.2 F Pulse Rate 70 Respiratory Rate 16 Blood Pressure 91/55 Pulse Oximetry 97 Oxygen Delivery Me thod Room Air Oxygen Flow Rate Fraction of Inspir ed Oxygen Hydration adequate: Yes Nausea and vomiting: Yes Pain level: 1 Mental status: Baseline Additional Comments: Patient's complaint of vertigo yesterday evening has since resolved. EOMs intact on exam
--- NOTE | 2023-04-03 07:44 | PM.OBGYPN ---
MARKETING COMMUNICATIONS COORDINATOR Subjective Subjective: Interval history: This is a 27-year-old G3, P3 that is postop day 1 after repeat lower transverse . Patient had dizziness yesterday but this is improved with IV fluids and p.o. intake. Patient states that she is not dizzy this morning. Patient currently still has Hawkins catheter. Patient reports that her pain is controlled on current medications. Vital signs stable. Labor: Monitor Mode: External Contraction Pattern: Rare Vitals/I&O/Wt Last Vital Signs Temp 97.2 F L 04/03/23 01:18 Pulse 70 04/03/23 06:17 Resp 16 04/02/23 09:20 BP 91/55 04/03/23 06:17 Pulse Ox 97 04/02/23 15:13 O2 Del Method Room Air 04/02/23 09:20 04/02/23 04/03/23 04/03/23 22:59 06:59 14:59 Intake Total 1000 / 2200 Output Total 1200 / 2750 275 / 3025 100 / 100 Balance -200 / -550 -275 / -825 -100 / -100 Weight last 48 hrs Weight 88.904 kg Weight 88.904 kg Physical Exam Const: COMMON NORMALS: no acute distress and alert HENMT: COMMON NORMALS: normocephalic and moist oral mucous membranes HEAD & SCALP: normocephalic Eye: COMMON NORMALS: EOMs intact bilaterally and no scleral icterus Neck/C-Spine: COMMON NORMALS: no JVD Resp: COMMON NORMALS: normal respiratory effort and No retractions Cardio: COMMON NORMALS: no JVD, regular rate and regular rhythm RATE: regular rate RHYTHM: regular rhythm GI: COMMON NORMALS: Normal to inspection, nondistended, normoactive bowel sounds present Extremity: COMMON NORMALS: no clubbing, cyanosis or edema Neuro: COMMON NORMALS: moves all extremities, no focal motor deficits and no sensory deficits noted SENSORIUM/ORIENTATION: Yes alert Psych: COMMON NORMALS: mental status grossly normal, cooperative and normal affect Skin: COMMON NORMALS: no rashes or lesions noted GENERAL SKIN EXAM: no rashes or lesions noted WOUNDS: Yes surgical site (Surgical incision covered with pressure dressing, minimal drainage) Urinary Catheter Management: Hawkins: Cath Placed During This Visit: yes Urinary Catheter Date of Insertion: 04/02/23 Urinary Catheter Time of Insertion: 07:35 Data 04/02/23 17:42 04/02/23 17:42 A&P Assessment and plan (1) delivery, delivered, current hospitalization: Recovering well. Pain well controlled. Remove Hawkins catheter today and encouraged the patient to ambulate. Attestations Medical Necessity Statement*: Anticipate 2 midnight stay. Likely discharge tomorrow Coding Level of Care Code Acute Code for Chg Fwd Diagnoses delivery, delivered, current hospitalization O82
[2023-04-03] MEDS: docusate sodium 100 mg Capsule PO (18:56)
[2023-04-03] MEDS: ibuprofen 800 mg tablet PO (21:13)
[2023-04-04 04:42] VITALS: BP 108/59; PULSE 81; RESP 16; TEMP 36.1
[2023-04-04] MEDS: HYDROcodone-acetaminophen 5-325 mg Tablet PO (04:43)
--- NOTE | 2023-04-04 07:41 | PM.OBGYDC ---
Discharge Providers VIDEO CONTROL ENGINEER Date of Admission: 04/02/23 05:09 Date of Discharge: 04/04/23 Attending Provider at Admission: David Jaramillo MD Attending Provider at Discharge: David Jaramillo MD Diagnoses at Discharge Discharge Diagnosis (1) delivery, delivered, current hospitalization: Status: Acute Reason for Visit Reason for Visit: epidermal consult Brief History: Patient presented for repeat lower transverse . Hospital Course Hospital Course This is a 27-year-old G3, P3 that presented at 39 weeks 2 days for repeat lower transverse . She underwent on 04/02/2023 without complication. Patient initially had some dizziness after delivery but this improved with IV fluids and oral intake. Patient's vital signs have remained stable. The patient's pain has been well controlled on oral pain medications. Patient is able to ambulate and urinate without issue. Bleeding is appropriate. Information Peripartum Data: Delivery Method: complications: none Physical Exam Const: COMMON NORMALS: no acute distress and alert HENMT: COMMON NORMALS: normocephalic and moist oral mucous membranes HEAD & SCALP: normocephalic Eye: COMMON NORMALS: EOMs intact bilaterally and no scleral icterus Neck/C-Spine: COMMON NORMALS: no JVD Resp: COMMON NORMALS: normal respiratory effort and No retractions Cardio: COMMON NORMALS: no JVD, regular rate and regular rhythm RATE: regular rate RHYTHM: regular rhythm GI: COMMON NORMALS: Normal to inspection, nondistended, normoactive bowel sounds present Extremity: COMMON NORMALS: no clubbing, cyanosis or edema Neuro: COMMON NORMALS: moves all extremities, no focal motor deficits and no sensory deficits noted SENSORIUM/ORIENTATION: Yes alert Psych: COMMON NORMALS: mental status grossly normal, cooperative and normal affect Skin: COMMON NORMALS: no rashes or lesions noted GENERAL SKIN EXAM: no rashes or lesions noted WOUNDS: Yes surgical site (Surgical incision clean dry and intact) Urinary Catheter Management: Hawkins: Cath Placed During This Visit: yes, but has since been removed by the nurse Reason for Continuing Indwelling Catheter: Decision to DC Catheter Urinary Catheter Date of Insertion: 04/02/23 Urinary Catheter Time of Insertion: 07:35 Date Urinary Catheter Removed: 04/03/23 Time Urinary Catheter Discontinued: 09:40 History History History 3 Term 2 Miscarriages/Ectopic Living Children 2 Discharge Data Studies Completed and Pending Laboratory Results WBC 11.0 10^3/uL (4.0-10.0) H 04/02/23 17:42 RBC 3.53 10^6/uL (4.1-5.3) L 04/02/23 17:42 Hgb 10.9 g/dL (11.5-15.3) L 04/02/23 17:42 Hct 33.5 % (37.0-47.0) L 04/02/23 17:42 MCV 94.9 fl (81-99) 04/02/23 17:42 MCH 30.9 pg (28.0-34.0) 04/02/23 17:42 MCHC 32.5 g/dL (30.0-36.0) 04/02/23 17:42 RDW 13.4 % (12.1-15.1) 04/02/23 17:42 Plt Count 164 10^3/cmm (130-400) 04/02/23 17:42 MPV 10.4 fL (7.4-10.4) 04/02/23 17:42 Neut % (Auto) 81.2 % 04/02/23 17:42 Lymph % (Auto) 10.9 % 04/02/23 17:42 [place] % (Auto) 7.0 % 04/02/23 17:42 Eos % (Auto) 0.2 % 04/02/23 17:42 Baso % (Auto) 0.3 % 04/02/23 17:42 Neut # (Auto) 8.98 10^3/uL (1.8-7.7) H 04/02/23 17:42 Lymph # (Auto) 1.2 10^3/uL (0.8-4.8) 04/02/23 17:42 [place] # (Auto) 0.8 10^3/uL (0.2-0.9) 04/02/23 17:42 Eos # (Auto) 0.0 10^3/uL (0.0-0.8) 04/02/23 17:42 Baso # (Auto) 0.0 10^3/uL (0.0-0.1) 04/02/23 17:42 Nucleated RBC % (auto) 0 % 04/02/23 17:42 Nucleated RBCs # 0.0 /100WBC 04/02/23 17:42 Sodium 130 mmol/L (136-145) L 04/02/23 17:42 Potassium 3.5 mmol/L (3.5-5.1) 04/02/23 17:42 Chloride 100 mmol/L (98-107) 04/02/23 17:42 Carbon Dioxide 21 mmol/L (22-29) L 04/02/23 17:42 Anion Gap 12.5 (5-19) 04/02/23 17:42 BUN 3 mg/dL (6-20) L 04/02/23 17:42 Creatinine 0.3 mg/dL (0.5-0.9) L 04/02/23 17:42 GFR Calculation 268.9 mL/min (90-130) H 04/02/23 17:42 Glucose 107 mg/dL (65-115) 04/02/23 17:42 Calculated Osmolality 267 mOsm/kg (285-295) L 04/02/23 17:42 Calcium 7.8 mg/dL (8.5-10.5) L 04/02/23 17:42 Magnesium 1.6 mg/dL (1.7-2.3) L 04/02/23 17:42 Blood Type O Positive 04/02/23 05:35 Rho(D) Type Positive 04/02/23 05:35 Antibody Screen Negative 04/02/23 05:35 Vitals Last Vital Signs Temp 97.0 F L 04/04/23 04:42 Pulse 81 04/04/23 04:42 Resp 16 04/04/23 04:42 BP 108/59 04/04/23 04:42 Pulse Ox 97 04/02/23 15:13 O2 Del Method Room Air 04/04/23 04:42 Discharge Plan Discharge Patient Disposition: Home Condition: Stable Prescriptions: New hydrocodone-acetaminophen 5-325 mg Tablet 1 - 2 tab PO Q4H PRN (Reason: Moderate To Severe Pain) Qty: 20 0RF Continued citalopram 20 mg tablet 20 mg PO DAILY prenat.vits,yeimy,[id number] Tablet 1 tab PO DAILY Discharge Orders: Discharge Order (Routine); Ordered 04/04/23 Ordered By: David Jaramillo Referrals: David Jaramillo MD [Physician] - 7-10 days Discharge Diet: Usual diet Discharge Activity: Limit activity as instructed Patient Instructions: Depression (DC), Bleeding (DC), Preeclampsia and Eclampsia After Delivery (GEN), OB - Haley/Bin, OB Discharge Report, OB Care at Home, Opioid Safety Discharge Attestations VIDEO CONTROL ENGINEER Time Spent in Discharge Care*: less than 30 min Coding Level of Care Code Acute Code for Chg Fwd Diagnoses delivery, delivered, current hospitalization O82
[2023-04-04] MEDS: ferrous sulfate EC 325 mg Tablet PO (08:10)
[2023-04-04] MEDS: ibuprofen 800 mg tablet PO (08:11)
[2023-04-04] MEDS: prenatal vitamin Capsule 1 CAP PO (08:12)
[2023-04-04] MEDS: docusate sodium 100 mg Capsule PO (08:12)
[2023-04-04] MEDS: simethicone 80 mg Chew PO (08:12)
[2023-04-04 10:20] VITALS: BP 109/72; PULSE 86
[2023-04-04 10:21] VITALS: TEMP 36.4
[2023-04-04 11:06] VITALS: BP 109/72; PULSE 86; RESP 17; TEMP 36.4
== END 2023-04-04 11:06 | disposition home or self-care (01) | DRG 788 ==
PROVIDERS: Anesthesiology; Admitting Provider Family Medicine; Visit Provider Family Medicine
PROC: 10D00Z1 Extraction of Products of Conception, Low, Open Approach (ICD-10-PCS; CPT 59514; principal; 2023-04-02 07:00)
DX: O34.211 Maternal care for low transverse scar from previous cesarean delivery (principal); N85.8 Other specified noninflammatory disorders of uterus; Z3A.39 39 weeks gestation of pregnancy; Z37.0 Single live birth; O77.0 Labor and delivery complicated by meconium in amniotic fluid; O99.344 Other mental disorders complicating childbirth; F41.1 Generalized anxiety disorder; O90.89 Other complications of the puerperium, not elsewhere classified; R42 Dizziness and giddiness
CPT/HCPCS: 51702; 59025; 59409; 80048; 83735; 85025; 86850; 86900; 96374; 96376; 99211; J1885; J2274; J2405; J2765; J3490; J7120; J7121

== ENCOUNTER → 2023-10-18 12:36 | Outpatient (BNVA) | payer MEDICAID, OTHER, SELFPAY | PROVIDERS: PCP Nurse Practitioner Family; Visit Provider Nurse Practitioner | DX: R39.9 Unspecified symptoms and signs involving the genitourinary system (principal); R82.998 Other abnormal findings in urine; N39.0 Urinary tract infection, site not specified | CPT/HCPCS: 81000; 87086 ==

== ENCOUNTER → 2023-11-02 11:59 | Outpatient (BNVA) | payer MEDICAID, OTHER, SELFPAY | PROVIDERS: PCP Nurse Practitioner Family; Visit Provider Emergency Medicine | DX: J02.9 Acute pharyngitis, unspecified (principal); J11.1 Influenza due to unidentified influenza virus with other respiratory manifestations | CPT/HCPCS: 87071; 87880 ==